=== PATIENT | female | born 1975 | race Hispanic/Latino ===

== ENCOUNTER → 2023-07-01 07:43 | Outpatient (REF) | payer OTHER, SELFPAY ==
[2023-07-01 09:08] LABS: % Basophils 0.5 % (0-2); % Eosinophils 4.6 % (0-6); % Immature Granulocytes 0.5 % (0-0.5); % Lymphocytes 40.5 % (20.5-51.1); % Monocytes 8.4 % (1.7-9.3); % Neutrophils 45.5 % (42.2-75.2); Absolute Eosinophils 0.3 10^3/uL (0-0.7); Absolute Lymphocytes 2.5 10^3/uL (1.2-3.4); Absolute Monocytes 0.5 10^3/uL (0.1-0.6); Absolute Neutrophils 2.8 10^3/uL (1.4-6.5); Hematocrit 32.9 % (37.0-47.0); Hemoglobin 10.1 g/dL (12.0-16.0); Mean Corp Hgb Conc. 30.7 g/dL (33.0-37.0); Mean Corpuscular Hgb 22.2 pg (27.0-31.0); Mean Corpuscular Volume 72.5 fL (81.0-99.0); Mean Platelet Volume 12.2 fL (7.4-10.4); Nucleated Red Blood Cells % 0 %; Platelet Count 197 10^3/uL (130-400); Red Blood Cell Count 4.54 10^6/uL (4.20-5.40); Red Cell Dist. Width 17.3 % (11.5-14.5); White Blood Cell Count 6.1 10^3/uL (4.8-10.8)
[2023-07-01 09:14] LABS: Iron 44 ug/dl (37-170)
[2023-07-01 09:23] LABS: Percent Saturation 9 % (20-50); Total Iron Binding Capacity 442 ug/dl (265-497)
[2023-07-01 09:54] LABS: Ferritin 6.2 ng/ml (6.24-137)
== END ==
LOC: CLINIC 07:43
PROVIDERS: ATTENDING PHYSICIAN Family Medicine
DX: I10 Essential (primary) hypertension (principal); E64.9 Sequelae of unspecified nutritional deficiency; D50.9 Iron deficiency anemia, unspecified
CPT/HCPCS: 36415; 82728; 83540; 83550; 85025

== ENCOUNTER → 2023-11-26 10:21 | Outpatient (REF) | payer OTHER, SELFPAY ==
[2023-11-26 11:09] LABS: % Basophils 0.5 % (0-2); % Eosinophils 4.9 % (0-6); % Immature Granulocytes 0.2 % (0-0.5); % Lymphocytes 35.2 % (20.5-51.1); % Neutrophils 51.2 % (42.2-75.2); Absolute Eosinophils 0.3 10^3/uL (0-0.7); Absolute Monocytes 0.5 10^3/uL (0.1-0.6); Absolute Neutrophils 2.9 10^3/uL (1.4-6.5); Hematocrit 32.4 % (37.0-47.0); Hemoglobin 10.3 g/dL (12.0-16.0); Mean Corp Hgb Conc. 31.8 g/dL (33.0-37.0); Mean Corpuscular Hgb 22.3 pg (27.0-31.0); Mean Corpuscular Volume 70.3 fL (81.0-99.0); Nucleated Red Blood Cells % 0 %; Platelet Count 194 10^3/uL (130-400); Red Blood Cell Count 4.61 10^6/uL (4.20-5.40); Red Cell Dist. Width 18.9 % (11.5-14.5); White Blood Cell Count 5.7 10^3/uL (4.8-10.8)
[2023-11-26 11:33] LABS: ALT (SGPT) 19 U/L (0-35); AST (SGOT) 26 U/L (14-36); Alkaline Phosphatase 107 U/L (38-126); Blood Urea Nitrogen 15 mg/dl (7-17); Calcium 9.3 mg/dl (8.4-10.2); Carbon Dioxide 26 mmol/L (22-30); Chloride 106 mmol/L (98-107); Glucose 100 mg/dl (70-99); HDL Cholesterol 56 mg/dl; Iron 46 ug/dl (37-170); LDL Cholesterol, Calculated 75 mg/dl; Potassium 4.6 mmol/L (3.5-5.1); Sodium 139 mmol/L (135-145); Total Bilirubin 0.5 mg/dl (0.2-1.3); Total Cholesterol 150 mg/dl (50-199); Total Protein 6.8 g/dl (6.3-8.2); Triglyceride 98 mg/dl (10-149); Very Low Density Lipoprotein 19 mg/dl (0-30); eGFR > 60.00
[2023-11-26 11:39] LABS: Albumin 4.2 g/dl (3.5-5.0)
[2023-11-26 11:41] LABS: Percent Saturation 10 % (20-50); Total Iron Binding Capacity 456 ug/dl (265-497)
[2023-11-26 12:09] LABS: Ferritin 5.7 ng/ml (6.24-137)
[2023-11-26 12:24] LABS: TSH 2.49 uIU/ml (0.47-4.68)
== END ==
LOC: REG 10:21
PROVIDERS: ATTENDING PHYSICIAN Family Medicine
DX: D64.9 Anemia, unspecified (principal); D50.9 Iron deficiency anemia, unspecified; I11.0 Hypertensive heart disease with heart failure; E66.9 Obesity, unspecified
CPT/HCPCS: 36415; 80053; 80061; 82728; 83036; 83540; 83550; 84443; 85025

== ENCOUNTER → 2024-01-02 11:39 | Outpatient (REF) | payer OTHER, SELFPAY ==
[2024-01-02 12:38] LABS: IgA 201 mg/dl (70-400)
[2024-01-02 13:47] LABS: Folate 19.7 ng/ml (2.76-20); Vitamin B12 230 pg/ml (239-931)
[2024-01-04 14:35] LABS: tTG IgA Antibody 3.6 EU/ml (0-19); tTG IgG Antibody 3.8 EU/ml (0-19)
== END ==
LOC: REG 11:39
PROVIDERS: ATTENDING PHYSICIAN Internal Medicine Gastroenterology
DX: D50.9 Iron deficiency anemia, unspecified (principal)
CPT/HCPCS: 36415; 82607; 82746; 82784; 83516; 86231

== ENCOUNTER → 2024-01-04 06:23 | Day surgery (SDC) | payer OTHER, SELFPAY | LOC: GI 06:23 | PROVIDERS: ATTENDING PHYSICIAN Internal Medicine Gastroenterology | DX: D50.9 Iron deficiency anemia, unspecified (principal); K57.30 Diverticulosis of large intestine without perforation or abscess without bleeding; K62.89 Other specified diseases of anus and rectum; K22.89 Other specified disease of esophagus; K44.9 Diaphragmatic hernia without obstruction or gangrene; K31.7 Polyp of stomach and duodenum; K63.5 Polyp of colon; K29.50 Unspecified chronic gastritis without bleeding; B96.81 Helicobacter pylori [H. pylori] as the cause of diseases classified elsewhere; K20.90 Esophagitis, unspecified without bleeding | CPT/HCPCS: 45380; 43239; 88305; 88342 ==

== ENCOUNTER → 2024-11-24 09:29 | Outpatient (REF) | payer OTHER, SELFPAY ==
[2024-11-24 10:14] LABS: Hematocrit 37.5 % (37.0-47.0); Hemoglobin 12.1 g/dL (12.0-16.0); Mean Corp Hgb Conc. 32.3 g/dL (33.0-37.0); Mean Corpuscular Volume 75.9 fL (81.0-99.0); Nucleated Red Blood Cells % 0 %; Platelet Count 165 10^3/uL (130-400); Red Cell Dist. Width 21.1 % (11.5-14.5); Reticulocyte Count 1.4 % (0.4-2.8)
[2024-11-24 10:24] LABS: Iron 256 ug/dl (37-170)
[2024-11-24 10:34] LABS: Total Iron Binding Capacity 411 ug/dl (265-497)
[2024-11-24 10:59] LABS: Ferritin 8.1 ng/ml (11.1-264.0)
[2024-11-24 11:13] LABS: Vitamin B12 603 pg/ml (239-931)
[2024-11-24 11:56] LABS: Glycohemoglobin (HgbA1c) 5.9 % (4.0-5.6)
[2024-11-26 17:39] LABS: Capillary Hgb Electrophoresis Not Performed; Hemoglobin - Other 0.0 % (0.0-0.0); Sickle Cell Solubility Reflex Not Performed
== END ==
LOC: CLINIC 09:29
PROVIDERS: ATTENDING PHYSICIAN Family Medicine
DX: D64.9 Anemia, unspecified (principal); R73.03 Prediabetes; E61.1 Iron deficiency; D50.9 Iron deficiency anemia, unspecified; E53.8 Deficiency of other specified B group vitamins
CPT/HCPCS: 36415; 82607; 82728; 83021; 83036; 83540; 83550; 85025; 85045

== ENCOUNTER → 2025-04-01 12:51 | Outpatient (REF) | payer OTHER, SELFPAY | LOC: CLINIC 12:51 | PROVIDERS: ATTENDING PHYSICIAN Family Medicine | DX: Z12.31 Encounter for screening mammogram for malignant neoplasm of breast (principal) | CPT/HCPCS: 77063; 77067 ==

== ENCOUNTER → 2025-04-13 09:30 | Outpatient (REF) | payer OTHER, SELFPAY ==
[2025-04-13 11:15] LABS: Hematocrit 39.7 % (37.0-47.0); Hemoglobin 12.4 g/dL (12.0-16.0); Mean Corp Hgb Conc. 31.2 g/dL (33.0-37.0); Mean Corpuscular Volume 82.2 fL (81.0-99.0); Nucleated Red Blood Cells % 0 %; Platelet Count 193 10^3/uL (130-400); Red Cell Dist. Width 14.9 % (11.5-14.5); Reticulocyte Count 2.0 % (0.4-2.8)
[2025-04-13 11:40] LABS: Iron 56 ug/dl (37-170)
[2025-04-13 11:50] LABS: Total Iron Binding Capacity 446 ug/dl (265-497)
[2025-04-13 12:12] LABS: Ferritin 7.1 ng/ml (11.1-264.0)
[2025-04-13 13:49] LABS: Glycohemoglobin (HgbA1c) 5.9 % (4.0-5.9)
== END ==
LOC: CLINIC 09:30
PROVIDERS: ATTENDING PHYSICIAN Family Medicine
DX: E61.1 Iron deficiency (principal); R73.03 Prediabetes
CPT/HCPCS: 36415; 82728; 83036; 83540; 83550; 85025; 85045